=== PATIENT | female | born 1970 | race Caucasian/White ===

== ENCOUNTER → 2019-10-06 | Outpatient (CLI) | payer OTHER ==
--- NOTE | 2019-10-07 11:32 | TST ---
[place] [address] TREADMILL STRESS TEST Name: BEVERLEY GREGG Clau Room: [facility]#: [id number] Admission: 10/06/19 Attend Phys: Kristan Kuhn DO Discharge: Date of : 72 Date of Service: 10/06/19 1633 Report #: [id number] THIS REPORT FOR: cc: Kristan Kuhn,Fareed Flowers MD [facility] ~ CC: Kristan Kuhn DO DATE OF SERVICE: 10/06/2019 TREADMILL EXERCISE TEST Resting 12-lead electrocardiogram demonstrates a sinus rhythm with nonspecific inferior and anterolateral ST-T abnormalities. The patient exercised for 6 minutes and 42 seconds, stopping because of shortness of breath and fatigue. She denied chest discomfort. The patient achieved a peak heart rate of 162, 94% of the age-predicted maximum. Blood pressure is 154/97 initially, increasing to 186/98 at peak exercise and falling to 154/97 during the post-exercise phase. There were no significant ischemic ST-T alterations superimposed on the baseline during or post-exercise. There were no significant supraventricular or ventricular arrhythmias. IMPRESSION: 1. Indeterminate treadmill exercise test for myocardial ischemia by virtue of baseline ST-T abnormalities; there was no increase in the ST-T changes provoked by exertion. 2. No chest pain provoked by exertion. 3. Appropriate heart rate and systolic blood pressure responses to exercise. 4. Modest diastolic hypertension at rest and post-exercise. 5. Satisfactory level of fitness for age. 6. No significant arrhythmias noted. <ELECTRONICALLY SIGNED> By: Fareed Patel MD, FACC 10/07/19 1132 1633 2046 Fareed Patel MD, FACC /nt
== END ==
LOC: M.CRD 14:46
PROVIDERS: ATTEND Family Medicine
DX: I10 Essential (primary) hypertension (principal); R06.02 Shortness of breath; R07.89 Other chest pain